=== PATIENT | male | born 1940 | race Caucasian/White ===

== ENCOUNTER 2023-01-27 10:48 | Outpatient (CLI) | payer MEDICARE, MEDICAID ==
[2023-01-27] MEDS ORDERED: Magnevist 469MG/ML 20 ML VIAL ONE (15:09)
== END 2023-01-27 10:49 | disposition home or self-care (01) ==
LOC: CSHMRI 10:48
PROVIDERS: ATTEND Student in an Organized Health Care Education/Training Program
DX: R93.2 Abnormal findings on diagnostic imaging of liver and biliary tract (principal); K76.89 Other specified diseases of liver; D18.03 Hemangioma of intra-abdominal structures
CPT/HCPCS: 74183; A9579